=== PATIENT | female | born 1990 | race Caucasian/White ===

== ENCOUNTER 2020-04-18 11:18 | Emergency (ER) | payer OTHER ==
[2020-04-18] MEDS ORDERED: NAPROSYN500 MG PO (14:14)
== END 2020-04-18 14:15 | disposition home or self-care (01) ==
LOC: ER1 11:18
DX: S93.401A Sprain of unspecified ligament of right ankle, initial encounter (principal); S93.601A Unspecified sprain of right foot, initial encounter; S80.02XA Contusion of left knee, initial encounter; F17.200 Nicotine dependence, unspecified, uncomplicated; Z88.0 Allergy status to penicillin; W17.2XXA Fall into hole, initial encounter; Y92.009 Unspecified place in unspecified non-institutional (private) residence as the place of occurrence of the external cause
CPT/HCPCS: 73562; 73610; 73630; 90471; 99283